=== PATIENT | female | born 1970 | race Caucasian/White ===

== ENCOUNTER → 2021-08-01 | Day surgery (SDC) | payer OTHER ==
[~2021-08-01] VITALS: Ht 167.6 cm; Wt 68.0 kg
[~2021-08-01] MED LIST: ADDERALL 10 MG10 MG PO; HCTZ12.5 MG PO; METOPROLOL; MULTI-VITAMIN1 EACH PO; NAPROXEN500 MG PO; PERCOCET 5-3251 EACH PO; ZYRTEC10 MG PO
[2021-08-01 09:00] LABS: HCG (URINE) SCREEN NEGATIVE (NEGATIVE)
[2021-08-01 09:05] LABS: HCT 43.6 % (37.0-47.0); HGB 15.3 g/dl (12.5-16.0); MCH 31.4 pg (25.0-31.0); MCHC 35.1 g/dL (32.0-36.0); MCV 89.3 fL (78.0-100.0); MPV 9.4 fL (6.0-9.5); RBC 4.88 M/uL (4.20-5.40); RDW 11.9 % (11.5-14.0); WBC 5.3 K/uL (4.0-10.5)
[2021-08-01 09:26] LABS: ALBUMIN 4.3 g/dL (3.4-5.0); BILIRUBIN - TOTAL 0.7 mg/dL (0.2-1.0); BUN/CREAT RATIO (CALC) 19.4 RATIO; CREATININE 0.62 mg/dL (0.51-0.95); POTASSIUM 3.1 mmol/L (3.5-5.1); TOTAL PROTEIN 8.3 g/dL (6.4-8.2)
== END | disposition home or self-care (01) ==
LOC: FAS 08:06
PROVIDERS: Surgery
DX: Z12.11 Encounter for screening for malignant neoplasm of colon (principal); K63.89 Other specified diseases of intestine
CPT/HCPCS: 36415; 80053; 84703; J1610; J2250; J7120